=== PATIENT | female | born 1970 | race Caucasian/White ===

== ENCOUNTER 2017-07-15 15:47 | Emergency (ER) | payer OTHER ==
[~2017-07-15 15:47] MED LIST: ALLO100 PO; DOXA4 PO; GABA300 PO; LABE200 PO; LOSA50 PO; POTCHL20ER PO; PRED10 PO; Remeron45 MG PO; Roxicodone15 MG PO; Valium5 MG PO; Ventolin/Prove6.7 GM INH
== END 2017-07-15 16:03 | disposition left against medical advice (07) ==
LOC: ER 15:47
DX: Z53.21 Procedure and treatment not carried out due to patient leaving prior to being seen by health care provider (principal)

== ENCOUNTER 2018-05-06 19:49 | Inpatient (IN) | payer OTHER ==
[~2018-05-06] VITALS: Ht 157.5 cm; Wt 109.4 kg
[~2018-05-06 19:49] MED LIST changes: +ALBU90OI INH; +HYDSUL200 PO; +MIRT15ST PO; +Percocet 5-3251 EACH PO; -Remeron45 MG PO; -Ventolin/Prove6.7 GM INH
[2018-05-06 20:26] LABS: BASOPHILS ABSOLUTE AUTO 0.09 K/mm3 (0.00-0.23); BASOPHILS PERCENT AUTO 1 % (0-2); EOSINOPHILS ABSOLUTE AUTO 0.29 K/mm3 (0.00-0.68); EOSINOPHILS PERCENT AUTO 3 % (0-6); Hematocrit 40.6 % (33.0-51.0); Hemoglobin 13.3 g/dL (11.5-16.0); IMMATURE GRAN ABSOLUTE AUTO 0.19 K/mm3 (0.00-0.10); IMMATURE GRAN PERCENT AUTO 2 % (0-1); LYMPHOCYTES ABSOLUTE AUTO 1.22 K/mm3 (0.84-5.20); LYMPHOCYTES PERCENT AUTO 10 % (21-46); MONOCYTES ABSOLUTE AUTO 0.76 K/mm3 (0.16-1.47); MONOCYTES PERCENT AUTO 7 % (4-13); Mean Corpuscular HGB 31.6 pg (26.0-34.0); Mean Corpuscular HGB Conc 32.8 g/dL (31.5-36.5); Mean Corpuscular Volume 96 fL (80-100); Mean Platelet Volume 9.1 fL (9.1-12.4); NEUTROPHILS ABSOLUTE AUTO 9.16 K/mm3 (1.96-9.15); NEUTROPHILS PERCENT AUTO 78 % (41-73); NRBC ABSOLUTE 0.02 K/mm3 (0.00-0.02); NRBC Auto 0.2 /100 WBC (0.0-0.2); Platelet Count 207 K/mm3 (150-400); RDW Coefficient Variation 13.8 % (11.7-14.2); RDW Standard Deviation 48.2 fL (35.1-46.3); Red Blood Cell Count 4.21 M/mm3 (3.80-5.20); White Blood Cell Count 11.71 K/mm3 (4.00-11.30)
[2018-05-06 20:42] LABS: Alanine Aminotransfer (ALT/SGP 35 U/L (12-78); Albumin, Blood 3.4 g/dL (3.4-5.0); Albumin/Globulin Ratio 0.9 (0.8-1.8); Alk Phos 92 U/L (50-136); Anion Gap 9 mmol/L (6-16); Aspartate Aminotrans (AST/SGOT 31 U/L (12-37); Bilirubin, Total 0.4 mg/dL (0.1-1.0); Blood Urea Nitrogen 18 mg/dL (8-24); Bun/Creatinine Ratio 10.4 (12.0-20.0); CO2, Blood 24 mmol/L (21-32); Calcium, Blood 8.6 mg/dL (8.5-10.1); Chloride, Blood 104 mmol/L (98-108); Creatinine, Blood 1.73 mg/dL (0.40-1.00); Globulin, Blood 3.6 g/dL (2.2-4.0); Glomerular Filtration Rate 34 (60-); Glucose, Blood 103 mg/dL (70-99); Potassium, Blood 3.9 mmol/L (3.5-5.5); Sodium, Blood 137 mmol/L (136-145); Troponin I <0.015 ng/mL (0.000-0.040)
[2018-05-07 02:23] LABS: Hematocrit 41.9 % (33.0-51.0); Hemoglobin 13.6 g/dL (11.5-16.0); Mean Corpuscular HGB 31.2 pg (26.0-34.0); Mean Corpuscular HGB Conc 32.5 g/dL (31.5-36.5); Mean Corpuscular Volume 96 fL (80-100); Mean Platelet Volume 9.4 fL (9.1-12.4); Platelet Count 212 K/mm3 (150-400); RDW Coefficient Variation 13.8 % (11.7-14.2); RDW Standard Deviation 47.7 fL (35.1-46.3); Red Blood Cell Count 4.36 M/mm3 (3.80-5.20); White Blood Cell Count 9.48 K/mm3 (4.00-11.30)
[2018-05-07 02:39] LABS: Bun/Creatinine Ratio 11.3 (12.0-20.0); Calcium, Blood 8.4 mg/dL (8.5-10.1); Creatinine, Blood 1.77 mg/dL (0.40-1.00); Potassium, Blood 4.1 mmol/L (3.5-5.5)
[2018-05-07 06:25] LABS: Adenovirus Not Detected (NOT DETECT); Bordetella pertussis Not Detected (NOT DETECT); Chlamydophila pneumoniae Not Detected (NOT DETECT); Coronavirus 229E Not Detected (NOT DETECT); Coronavirus HKU1 Not Detected (NOT DETECT); Coronavirus NL63 Not Detected (NOT DETECT); Coronavirus OC43 Not Detected (NOT DETECT); Human Metapneumovirus Not Detected (NOT DETECT); Human Rhinovirus/Enterovirus Detected (NOT DETECT); Influenza A Not Detected (NOT DETECT); Influenza A/2009-H1 Not Detected (NOT DETECT); Influenza A/H1 Not Detected (NOT DETECT); Influenza A/H3 Not Detected (NOT DETECT); Influenza B Not Detected (NOT DETECT); Mycoplasma pneumoniae Not Detected (NOT DETECT); Parainfluenza Virus 1 Not Detected (NOT DETECT); Parainfluenza Virus 2 Not Detected (NOT DETECT); Parainfluenza Virus 3 Not Detected (NOT DETECT); Parainfluenza Virus 4 Not Detected (NOT DETECT); Respiratory Syncytial Virus Not Detected (NOT DETECT)
--- NOTE | 2018-05-07 06:29 | NUR ---
SHIFT SUMMARY PT ALERT AND ORIENTED. PT ANXIOUS AT TIMES. VS STABLE. ELEVATED BP AND PROVIDER AWARE. PT COMPLAINS OF PAIN IN HER CHEST THAT FEELS LIKE TIGHTNESS. DR POON CALLED AND TYLENOL PROVIDED. LS EXP WHEEZES. O2 SATS >92% ON 2L NC. PT STATES SHE DOES NOT USE O2 AT HOME. PT STATES SHE HAS HAD A PRODUCTIVE COUGH WITH YELLOW SPUTUM. PT ABLE TO AMBULATE TO BATHROOM TO VOID. NO OTHER CHANGES AT THIS TIME. WILL CONTINUE TO MONITOR AND REPORT TO ONCOMING RN. CALL LIGHT IN REACH.
--- NOTE | 2018-05-07 07:55 | NUR ---
INITIAL ASSESSMENT: PT RESTING IN BED. LS VERY WHEEZY ON EXPIRATION. PT SOB WITH EXERTION. STATES THAT SHE IS HAVING SHARP PAINS IN HER CHEST THAT COME AND GO AND ALSO THAT SHE IS HAVING A CONSTANT PRESSURE PAIN. RATES HER PAIN AN 8/10. WILL TREAT PER ORDERS. VSS. CALL LIGHT IN REACH.
--- NOTE | 2018-05-07 12:31 | NUR ---
Spiritual care visit conducted. Patient was sitting up in bed and alert when I entered the room. I introduced myself and stated the purpose for my visit and patient invited me to sit down. After establishing therapeutic alliance patient shared issues of struggle centered around the patient's salina and family. A lengthy conversation ensued in which I conducted a life review, explored parient's belief system, explored sources of meaning and dignity, reinforeced helpful attitudes and practices and provided prayer. Patient responded well to all interventions, showed signs of reduced stress and restored salina and expressed gratitude for the visit.
--- NOTE | 2018-05-07 16:53 | NUR ---
TRANSFER NOTE: Called report to medical floor RN. Pt to be transfered to room 360. VSS at time of transfer. Pt denies questions. Left via W/C with MECHANICAL SERVICE REPRESENTATIVE.
--- NOTE | 2018-05-07 18:37 | NUR ---
PATIENT TRANSFERRED THIS AFTERNOON TO MEDICAL. FAMILY AT BEDSIDE. PATIENT REQUESTED TYLENOL FOR PAIN DUE TO COUGHING. COUGH IS DRY AND NON PRODUCTIVE.
[2018-05-08 04:23] LABS: BASOPHILS ABSOLUTE AUTO 0.03 K/mm3 (0.00-0.23); BASOPHILS PERCENT AUTO 0 % (0-2); EOSINOPHILS ABSOLUTE AUTO 0.03 K/mm3 (0.00-0.68); EOSINOPHILS PERCENT AUTO 0 % (0-6); Hematocrit 38.7 % (33.0-51.0); Hemoglobin 12.5 g/dL (11.5-16.0); IMMATURE GRAN ABSOLUTE AUTO 0.25 K/mm3 (0.00-0.10); IMMATURE GRAN PERCENT AUTO 1 % (0-1); LYMPHOCYTES ABSOLUTE AUTO 0.94 K/mm3 (0.84-5.20); LYMPHOCYTES PERCENT AUTO 5 % (21-46); MONOCYTES ABSOLUTE AUTO 0.56 K/mm3 (0.16-1.47); MONOCYTES PERCENT AUTO 3 % (4-13); Mean Corpuscular HGB 30.9 pg (26.0-34.0); Mean Corpuscular HGB Conc 32.3 g/dL (31.5-36.5); Mean Corpuscular Volume 96 fL (80-100); Mean Platelet Volume 9.6 fL (9.1-12.4); NEUTROPHILS ABSOLUTE AUTO 17.05 K/mm3 (1.96-9.15); NEUTROPHILS PERCENT AUTO 90 % (41-73); Platelet Count 213 K/mm3 (150-400); RDW Coefficient Variation 13.8 % (11.7-14.2); RDW Standard Deviation 47.5 fL (35.1-46.3); Red Blood Cell Count 4.04 M/mm3 (3.80-5.20); White Blood Cell Count 18.86 K/mm3 (4.00-11.30)
[2018-05-08 04:39] LABS: Bun/Creatinine Ratio 16.5 (12.0-20.0); Calcium, Blood 8.1 mg/dL (8.5-10.1); Potassium, Blood 4.5 mmol/L (3.5-5.5)
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
[2018-05-08] MEDS ORDERED: DIAZ5 PO (13:27)
[2018-05-08 13:33] LABS: Albumin, Blood 3.3 g/dL (3.4-5.0); Anion Gap 9 mmol/L (6-16); Blood Urea Nitrogen 38 mg/dL (8-24); Bun/Creatinine Ratio 19.4 (12.0-20.0); CO2, Blood 27 mmol/L (21-32); Chloride, Blood 106 mmol/L (98-108); Creatinine, Blood 1.96 mg/dL (0.40-1.00); Glomerular Filtration Rate 29 (60-); Glucose, Blood 136 mg/dL (70-99); Phosphorus, Blood 2.6 mg/dL (2.5-4.9); Potassium, Blood 4.2 mmol/L (3.5-5.5); Sodium, Blood 142 mmol/L (136-145)
[2018-05-08] MEDS ORDERED: Acetaminophen325 M1 PO (13:33)
[2018-05-08] MEDS ORDERED: AZIT500 PO (13:35)
[2018-05-08] MEDS ORDERED: GUAIFENESIN ER600 MG PO (13:37)
[2018-05-08] MEDS ORDERED: ONDA4ODT MM (13:37)
--- NOTE | 2018-05-08 17:58 | NUR ---
PATIENT DISCHARGE THE PATIENT WAS DISCHARGED HOME WITH HER DAUGHTER AFTER DISCHARGE INSTRUCTIONS WERE GIVEN TO THE PATIENT. THE PATIENT WAS INSTRUCTED TO TAKE HER MEDICATIONS DIRECTED AND TO FOLLOW UP WITH HER PCP WITH IN ONE WEEK. THE PATIENT SEEMED HAPPY TO BE GOING HOME.
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
== END 2018-05-08 19:05 | disposition home or self-care (01) | DRG 196 ==
LOC: ER 19:49 → ERHOLD 22:41 → PCU 05-07 03:10 → MEDS 05-07 16:56 → ENPENDDIS 05-08 12:58 → MEDS 05-08 18:20
PROVIDERS: Emergency Medicine; Family Medicine; Nurse Practitioner Acute Care; ADMIT Hospitalist
DX: J84.10 Pulmonary fibrosis, unspecified (principal); J96.21 Acute and chronic respiratory failure with hypoxia; J44.1 Chronic obstructive pulmonary disease with (acute) exacerbation; C85.90 Non-Hodgkin lymphoma, unspecified, unspecified site; I13.0 Hypertensive heart and chronic kidney disease with heart failure and stage 1 through stage 4 chronic kidney disease, or unspecified chronic kidney disease; J44.0 Chronic obstructive pulmonary disease with (acute) lower respiratory infection; Z68.41 Body mass index [BMI] 40.0-44.9, adult; E66.01 Morbid (severe) obesity due to excess calories; N18.3 Chronic kidney disease, stage 3 (moderate); I50.9 Heart failure, unspecified; J20.6 Acute bronchitis due to rhinovirus; F41.9 Anxiety disorder, unspecified; Z87.891 Personal history of nicotine dependence; M06.9 Rheumatoid arthritis, unspecified; G47.33 Obstructive sleep apnea (adult) (pediatric)
CPT/HCPCS: 36415; 71046; 80048; 80053; 80069; 83690; 83880; 84484; 85025; 85027; 87486; 87581; 87633; 87798; 93005; 93010; 93306; 94640; 94760; 96374; 99285-25; J0360; J1650; J1940; J2930; J7030

== ENCOUNTER 2018-09-28 15:22 | Emergency (ER) | payer OTHER ==
[~2018-09-28] VITALS: Ht 157.5 cm; Wt 108.9 kg
[~2018-09-28 15:22] MED LIST changes: +AZIT500 PO; +Acetaminophen325 M1 PO; +DIAZ5 PO; +GUAIFENESIN ER600 MG PO; +ONDA4ODT MM
[2018-09-28 16:17] LABS: BASOPHILS ABSOLUTE AUTO 0.07 K/mm3 (0.00-0.23); BASOPHILS PERCENT AUTO 1 % (0-2); EOSINOPHILS ABSOLUTE AUTO 0.26 K/mm3 (0.00-0.68); EOSINOPHILS PERCENT AUTO 3 % (0-6); Hematocrit 42.5 % (33.0-51.0); IMMATURE GRAN ABSOLUTE AUTO 0.08 K/mm3 (0.00-0.10); IMMATURE GRAN PERCENT AUTO 1 % (0-1); LYMPHOCYTES ABSOLUTE AUTO 2.02 K/mm3 (0.84-5.20); LYMPHOCYTES PERCENT AUTO 25 % (21-46); MONOCYTES ABSOLUTE AUTO 0.84 K/mm3 (0.16-1.47); MONOCYTES PERCENT AUTO 10 % (4-13); Mean Corpuscular HGB 30.4 pg (26.0-34.0); Mean Corpuscular HGB Conc 32.9 g/dL (31.5-36.5); Mean Corpuscular Volume 92 fL (80-100); Mean Platelet Volume 9.7 fL (9.1-12.4); NEUTROPHILS ABSOLUTE AUTO 4.86 K/mm3 (1.96-9.15); NEUTROPHILS PERCENT AUTO 60 % (41-73); Platelet Count 224 K/mm3 (150-400); RDW Coefficient Variation 12.9 % (11.7-14.2); RDW Standard Deviation 43.3 fL (35.1-46.3); White Blood Cell Count 8.13 K/mm3 (4.00-11.30)
[2018-09-28 16:37] LABS: Alanine Aminotransfer (ALT/SGP 30 U/L (12-78); Albumin, Blood 3.6 g/dL (3.4-5.0); Albumin/Globulin Ratio 1.1 (0.8-1.8); Alk Phos 92 U/L (50-136); Anion Gap 7 mmol/L (6-16); Aspartate Aminotrans (AST/SGOT 44 U/L (12-37); Bilirubin, Total 0.6 mg/dL (0.1-1.0); Blood Urea Nitrogen 15 mg/dL (8-24); Bun/Creatinine Ratio 9.1 (12.0-20.0); CO2, Blood 26 mmol/L (21-32); Calcium, Blood 8.6 mg/dL (8.5-10.1); Chloride, Blood 105 mmol/L (98-108); Creatinine, Blood 1.65 mg/dL (0.40-1.00); Globulin, Blood 3.4 g/dL (2.2-4.0); Glomerular Filtration Rate 35 (60-); Glucose, Blood 82 mg/dL (70-99); Potassium, Blood 4.4 mmol/L (3.5-5.5); Sodium, Blood 138 mmol/L (136-145); Troponin I <0.015 ng/mL (0.000-0.040)
[2018-09-28] MEDS ORDERED: Valtrex1000 MG PO (17:18)
[2018-09-28] MEDS ORDERED: Prednisone20 MG PO (17:18)
== END 2018-09-28 17:29 | disposition home or self-care (01) ==
LOC: ER 15:22
PROVIDERS: Physician Assistant
DX: G51.0 Bell's palsy (principal); I13.0 Hypertensive heart and chronic kidney disease with heart failure and stage 1 through stage 4 chronic kidney disease, or unspecified chronic kidney disease; I50.9 Heart failure, unspecified; N18.9 Chronic kidney disease, unspecified; Z87.891 Personal history of nicotine dependence; Z79.899 Other long term (current) drug therapy; Z79.891 Long term (current) use of opiate analgesic
CPT/HCPCS: 36415; 70450; 80053; 84484; 85025; 93005; 93010; 99284-25; J7512

== ENCOUNTER 2020-03-06 16:51 | Inpatient (IN) | payer OTHER ==
[~2020-03-06] VITALS: Ht 157.5 cm; Wt 104.3 kg
[~2020-03-06 16:51] MED LIST changes: +Prednisone20 MG PO; +Valtrex1000 MG PO
[2020-03-06 18:14] LABS: BASOPHILS ABSOLUTE AUTO 0.06 K/mm3 (0.00-0.23); BASOPHILS PERCENT AUTO 1 % (0-2); EOSINOPHILS ABSOLUTE AUTO 0.37 K/mm3 (0.00-0.68); EOSINOPHILS PERCENT AUTO 4 % (0-6); Hematocrit 47.5 % (33.0-51.0); Hemoglobin 15.1 g/dL (11.5-16.0); IMMATURE GRAN ABSOLUTE AUTO 0.04 K/mm3 (0.00-0.10); IMMATURE GRAN PERCENT AUTO 1 % (0-1); LYMPHOCYTES ABSOLUTE AUTO 1.34 K/mm3 (0.84-5.20); LYMPHOCYTES PERCENT AUTO 16 % (21-46); MONOCYTES ABSOLUTE AUTO 0.71 K/mm3 (0.16-1.47); MONOCYTES PERCENT AUTO 8 % (4-13); Mean Corpuscular HGB 28.3 pg (26.0-34.0); Mean Corpuscular HGB Conc 31.8 g/dL (31.5-36.5); Mean Corpuscular Volume 89 fL (80-100); Mean Platelet Volume 9.9 fL (9.1-12.4); NEUTROPHILS PERCENT AUTO 70 % (41-73); Platelet Count 248 K/mm3 (150-400); RDW Coefficient Variation 12.7 % (11.7-14.2); RDW Standard Deviation 41.5 fL (35.1-46.3); Red Blood Cell Count 5.34 M/mm3 (3.80-5.20); White Blood Cell Count 8.42 K/mm3 (4.00-11.30)
[2020-03-06 18:30] LABS: Albumin, Blood 3.5 g/dL (3.4-5.0); Albumin/Globulin Ratio 0.9 (0.8-1.8); Bilirubin, Total 0.4 mg/dL (0.1-1.0); Bun/Creatinine Ratio 12.3 (12.0-20.0); Calcium, Blood 8.9 mg/dL (8.5-10.1); Creatinine, Blood 2.04 mg/dL (0.40-1.00); Globulin, Blood 3.7 g/dL (2.2-4.0); Potassium, Blood 4.1 mmol/L (3.5-5.5); Total Protein, Blood 7.2 g/dL (6.4-8.2)
[2020-03-06 18:48] LABS: Source, Urine Clean Catch
[2020-03-06 18:57] LABS: Appearance, Urine Clear (Clear); Bilirubin, Urine Neg (Neg); Blood, Urine 1+ (Neg); Color, Urine Yellow (P-Yellow); Glucose Qualitative, Urine Neg (Neg); Ketones, Urine Neg (Neg); Leukocyte Esterase, Urine Neg (Neg); Nitrite, Urine Neg (Neg); Protein, Urine 2+ (Neg); Specific Gravity, Urine 1.015 (1.003-1.022); Urobilinogen, Urine NORM (Normal)
[2020-03-06 19:07] LABS: Bacteria Rare /hpf; Squamous Epithelial Cells Few /hpf (Few); White Blood Cells, Urine 0-2 /hpf (0-5)
[2020-03-06] MEDS ORDERED: LASIX20 MG PO (23:29)
[2020-03-07 00:14] LABS: Influenza A, PCR Negative (NEGATIVE); Influenza B, PCR Negative (NEGATIVE); Resp Syncytial Virus, PCR Negative (NEGATIVE); SARS-Cov-2 (COVID-19) PCR, MMC Negative (NEGATIVE)
--- NOTE | 2020-03-07 06:21 | NUR ---
SHIFT SUMMARY NEW ADMIT THIS SHIFT. AAOX4. NPO. DISCOMFORT CONTROLLED WITH DILAUDID BATTERY HAND. DR MOONEY IN TO SEE PT EARLY THIS AM, OKAY WITH SMALL SNACK. PT WITH NAUSEA + EMESIS POST SNACK, DECRESED WITH ZOFRAN. PT UP SBA TO RESTROOM, LETHARGIC R/T LACK OF SLEEP. IVF + DILAUDID BATTERY HAND. PT RESTING THIS AM. ORIENTED TO CALL LIGHT + DEMONSTRATED USE.
--- NOTE | 2020-03-07 08:03 | NUR ---
C/O NAUSEA THIS AM, MEDICATED W/ ZOFRAN, REPORTS FEELING SLIGHTLY ANXIOUS THIS AM AND CONT. TO HAVE ABD PAIN, PT ON GOLF CART REPAIRER, STATES CAREGIVER WILL BRING IN CURRENT MED LIST, DENIES ANY OTHER DISCOMFORT AT THIST TIME.
[2020-03-07] MEDS ORDERED: MIRT30 PO (08:45)
[2020-03-07] MEDS ORDERED: VENL150ER PO (08:45)
--- NOTE | 2020-03-07 13:15 | NUR ---
PT'S GLASSES LEFT IN HER ROOM ON TABLE. BRACELET GIVEN TO FRIEND JATINDER AND EARRINGS PLACED IN SMALL BAG WITH PT'S NAME AND TAKEN TO OR.
--- NOTE | 2020-03-07 13:15 | NUR ---
PT TRANSFERED TO [facility] VIA [facility]URNY FROM FLOOR. Lungs clear T/O to Auscultation. History, Chart, Medications and Allergies reviewed before start of procedure. Patient confirms NPO status and agrees with scheduled surgery. Pre-Op teaching done. Pt verbalizes understanding.
--- NOTE | 2020-03-07 13:33 | NUR ---
03/07/20 Pete3 Cindy Pena NO PREOP ANTIBIOTICS ORDERED
[2020-03-07] MEDS ORDERED: OMEP20ER PO (15:52)
[2020-03-07] MEDS ORDERED: HYDHCL25 PO (16:18)
[2020-03-07] MEDS ORDERED: Isosorbide Mono30 MG PO (16:19)
[2020-03-07] MEDS ORDERED: AMLO10 PO (16:20)
[2020-03-07] MEDS ORDERED: Aspir 8181 MG PO (16:20)
--- NOTE | 2020-03-07 16:26 | NUR ---
POST OP ARRIVED FROM PACU VIA JAYLEENRKACIE, DROWSY BUT PT WAS ABLE TO SCOOT SELF OVER TO BED, PT IS MOANING AND GRUNTING AND UNABLE TO SPEAK BUT FOLLOWS COMMANDS, POINTING TO MOUTH AND MOUTHING "DRY" O2 SATS 81-85% ON 2L PT PLACED ON 4 L VIA NC, SATS IMPROVED TO 92%, ENCOURAGED TO COUGH AND DEEP BREATHE, DENIES ANY NAUSEA, CONT. TO MONITOR FOR ANY CHANGES.
[2020-03-07 17:16] LABS: Albumin, Blood 3.4 g/dL (3.4-5.0); Bilirubin, Total 0.5 mg/dL (0.1-1.0); Bun/Creatinine Ratio 10.4 (12.0-20.0); Calcium, Blood 8.7 mg/dL (8.5-10.1); Creatinine, Blood 2.01 mg/dL (0.40-1.00); Globulin, Blood 3.3 g/dL (2.2-4.0); Potassium, Blood 4.4 mmol/L (3.5-5.5); Total Protein, Blood 6.7 g/dL (6.4-8.2)
[2020-03-07 17:24] LABS: BASOPHILS ABSOLUTE AUTO 0.04 K/mm3 (0.00-0.23); BASOPHILS PERCENT AUTO 0 % (0-2); EOSINOPHILS ABSOLUTE AUTO 0.08 K/mm3 (0.00-0.68); EOSINOPHILS PERCENT AUTO 1 % (0-6); Hemoglobin 14.1 g/dL (11.5-16.0); IMMATURE GRAN ABSOLUTE AUTO 0.05 K/mm3 (0.00-0.10); IMMATURE GRAN PERCENT AUTO 0 % (0-1); LYMPHOCYTES ABSOLUTE AUTO 1.12 K/mm3 (0.84-5.20); LYMPHOCYTES PERCENT AUTO 8 % (21-46); MONOCYTES ABSOLUTE AUTO 0.47 K/mm3 (0.16-1.47); MONOCYTES PERCENT AUTO 3 % (4-13); Mean Corpuscular HGB 28.4 pg (26.0-34.0); Mean Corpuscular HGB Conc 31.3 g/dL (31.5-36.5); Mean Corpuscular Volume 91 fL (80-100); Mean Platelet Volume 9.8 fL (9.1-12.4); NEUTROPHILS ABSOLUTE AUTO 12.66 K/mm3 (1.96-9.15); NEUTROPHILS PERCENT AUTO 88 % (41-73); Platelet Count 194 K/mm3 (150-400); RDW Coefficient Variation 12.6 % (11.7-14.2); RDW Standard Deviation 41.5 fL (35.1-46.3); Red Blood Cell Count 4.96 M/mm3 (3.80-5.20); White Blood Cell Count 14.42 K/mm3 (4.00-11.30)
--- NOTE | 2020-03-07 21:46 | NUR ---
PT REPORTED MUSCLE SPASMS. APPEARS TO HAVE OCC TWITCHING AT SHOULDERS AND ARMS. PT VERB HAS NO HX OF THIS. I CALLED DR DUNN AND REPORTED ABOVE. DR MOONEY STATED SHE NOTED THIS WITH PT PREOP AND GAVE NO NEW ORDERS.
--- NOTE | 2020-03-08 01:16 | NUR ---
PT DROWSY CONTINUES MILDLY SLOW TO RESPOND WITH ANSWERS TO QUESTIONS.HOWEVER, PT IS ORIENTED TO SITUATION ,TIME AND STAFF.STOPPED CONTINUOS MODE ON DIRECTOR REVENUE AT THIS TIME PER JUDGEMENT OF THIS RN AND FLACO SCALE TESTER CRUISE COORDINATOR.
[2020-03-08 05:58] LABS: BASOPHILS ABSOLUTE AUTO 0.03 K/mm3 (0.00-0.23); BASOPHILS PERCENT AUTO 0 % (0-2); EOSINOPHILS ABSOLUTE AUTO 0.02 K/mm3 (0.00-0.68); EOSINOPHILS PERCENT AUTO 0 % (0-6); Hematocrit 41.2 % (33.0-51.0); Hemoglobin 12.9 g/dL (11.5-16.0); IMMATURE GRAN ABSOLUTE AUTO 0.03 K/mm3 (0.00-0.10); IMMATURE GRAN PERCENT AUTO 0 % (0-1); LYMPHOCYTES ABSOLUTE AUTO 1.74 K/mm3 (0.84-5.20); LYMPHOCYTES PERCENT AUTO 16 % (21-46); MONOCYTES PERCENT AUTO 12 % (4-13); Mean Corpuscular HGB 28.3 pg (26.0-34.0); Mean Corpuscular HGB Conc 31.3 g/dL (31.5-36.5); Mean Corpuscular Volume 90 fL (80-100); Mean Platelet Volume 9.5 fL (9.1-12.4); NEUTROPHILS ABSOLUTE AUTO 7.61 K/mm3 (1.96-9.15); NEUTROPHILS PERCENT AUTO 71 % (41-73); Platelet Count 182 K/mm3 (150-400); RDW Coefficient Variation 12.4 % (11.7-14.2); RDW Standard Deviation 40.7 fL (35.1-46.3); Red Blood Cell Count 4.56 M/mm3 (3.80-5.20); White Blood Cell Count 10.73 K/mm3 (4.00-11.30)
--- NOTE | 2020-03-08 06:23 | NUR ---
SUMMARY PT STATES FEELS BETTER. PT DOES NOT INTERACT MUCH WITH STAFF VERBALLY AND APPEARS SOMEWHAT CHILDLIKE AT TIMES. CONFIRMED THIS IS BASELINE FOR PT. ALSO PT WITH SLIGHTLY BAH APPEARANCE TO R EYE THAN L WHICH PT REPORTS SAME SINCE HER BELS PALSY AND DR AWARE.I HAVE BEEN UNABLE TO WEAN PT FROM O2 HER R/A BIOX HAS BEEN 87%.PT WITH HX PULMONARY FIBROSIS AND ALSO HX COPD NOTED IN OLD RECORDS. PT DENIES O2 USE AT HOME. DR MOONEY ORDERED HOPSPITALIST CX THIS AM.
[2020-03-08 09:29] LABS: Albumin, Blood 3.1 g/dL (3.4-5.0); Albumin/Globulin Ratio 1.1 (0.8-1.8); Bilirubin, Total 0.5 mg/dL (0.1-1.0); Bun/Creatinine Ratio 11.4 (12.0-20.0); Calcium, Blood 8.5 mg/dL (8.5-10.1); Creatinine, Blood 1.75 mg/dL (0.40-1.00); Globulin, Blood 2.9 g/dL (2.2-4.0); Potassium, Blood 4.5 mmol/L (3.5-5.5)
--- NOTE | 2020-03-08 18:43 | NUR ---
SHIFT SUMMARY PT IS POD#1 FROM MASS REMOVAL. PAIN HAS BEEN MANAGED WITH 1 NORCO Q6. PT RATES HER PAIN AT 10/10 EVEN AFTER HAVING PAIN MEDICATION. PT FALLS ASLEEP EASILY BETWEEN CARE. SHE APPEARS COMFORTABLE AT REST AND IS ABLE TO TRANSFER DESPITE SOME INCREASE IN PAIN WITH MOVEMENT. PT IS TOLERATING PO AND VOIDING. VSS. WILL MONITOR UNTIL REPORT TO ONCOMING RN.
--- NOTE | 2020-03-09 04:35 | NUR ---
SHIFT SUMMARY POD #2 S/P BILATERAL SALPINGECTOMY/OOPHORECTOMY. TRANSVERSE ABD DRESSING CDI. PAIN MANAGED WITH 2 PERCOCET. SPO2 ABOVE 92% ON 2L NC, CONT BIOX IN PLACE. UP TO BATHROOM W/SBA. IS VOIDING AND REPORTS PASSING FLATUS. JEFF PO INTAKE. APPEARS TO HAVE SLEPT T/O MOST OF SHIFT. AWAITING MORNING LABS. PT CURRENTLY RESTING IN BED WITH CALL LIGHT IN REACH. WILL CONT TO MONITOR AND GIVE REPORT TO ONCOMING RN.
[2020-03-09 05:00] LABS: Bun/Creatinine Ratio 14.1 (12.0-20.0); Calcium, Blood 8.4 mg/dL (8.5-10.1); Creatinine, Blood 1.91 mg/dL (0.40-1.00); Potassium, Blood 3.8 mmol/L (3.5-5.5)
[2020-03-09 09:28] LABS: BASOPHILS ABSOLUTE AUTO 0.07 K/mm3 (0.00-0.23); BASOPHILS PERCENT AUTO 1 % (0-2); EOSINOPHILS ABSOLUTE AUTO 0.38 K/mm3 (0.00-0.68); EOSINOPHILS PERCENT AUTO 4 % (0-6); Hematocrit 39.6 % (33.0-51.0); Hemoglobin 12.3 g/dL (11.5-16.0); IMMATURE GRAN ABSOLUTE AUTO 0.03 K/mm3 (0.00-0.10); IMMATURE GRAN PERCENT AUTO 0 % (0-1); LYMPHOCYTES ABSOLUTE AUTO 2.25 K/mm3 (0.84-5.20); LYMPHOCYTES PERCENT AUTO 24 % (21-46); MONOCYTES PERCENT AUTO 12 % (4-13); Mean Corpuscular HGB 28.7 pg (26.0-34.0); Mean Corpuscular HGB Conc 31.1 g/dL (31.5-36.5); Mean Corpuscular Volume 93 fL (80-100); Mean Platelet Volume 10.2 fL (9.1-12.4); NEUTROPHILS ABSOLUTE AUTO 5.66 K/mm3 (1.96-9.15); NEUTROPHILS PERCENT AUTO 60 % (41-73); Platelet Count 185 K/mm3 (150-400); RDW Coefficient Variation 12.6 % (11.7-14.2); RDW Standard Deviation 43.2 fL (35.1-46.3); Red Blood Cell Count 4.28 M/mm3 (3.80-5.20); White Blood Cell Count 9.49 K/mm3 (4.00-11.30)
--- NOTE | 2020-03-09 10:23 | NUR ---
dr lira by to see pt 1 tab po percocet given will trial giving 1 tab every 3 hrs for pain control per dr lira
--- NOTE | 2020-03-09 11:17 | NUR ---
istrate by to see pt ct scan ordered and iv levaquin
[2020-03-09 18:12] LABS: Influenza A, PCR Negative (NEGATIVE); Influenza B, PCR Negative (NEGATIVE); Resp Syncytial Virus, PCR Negative (NEGATIVE); SARS-Cov-2 (COVID-19) PCR, MMC Negative (NEGATIVE)
--- NOTE | 2020-03-09 18:18 | NUR ---
pt req assist to get back into bed after dinner covid rsv and flu a and b are neg
--- NOTE | 2020-03-09 18:50 | NUR ---
pt given some hot tea to try and cough up some mucus stated she is having difficulty bringing it up also encouraged her to use the is/tcdb also elev the hob to 90 degrees
[2020-03-10 04:12] LABS: BASOPHILS ABSOLUTE AUTO 0.07 K/mm3 (0.00-0.23); BASOPHILS PERCENT AUTO 1 % (0-2); EOSINOPHILS ABSOLUTE AUTO 0.41 K/mm3 (0.00-0.68); EOSINOPHILS PERCENT AUTO 5 % (0-6); Hematocrit 40.1 % (33.0-51.0); Hemoglobin 12.5 g/dL (11.5-16.0); IMMATURE GRAN ABSOLUTE AUTO 0.03 K/mm3 (0.00-0.10); IMMATURE GRAN PERCENT AUTO 0 % (0-1); LYMPHOCYTES ABSOLUTE AUTO 1.84 K/mm3 (0.84-5.20); LYMPHOCYTES PERCENT AUTO 24 % (21-46); MONOCYTES ABSOLUTE AUTO 1.06 K/mm3 (0.16-1.47); MONOCYTES PERCENT AUTO 14 % (4-13); Mean Corpuscular HGB 28.4 pg (26.0-34.0); Mean Corpuscular HGB Conc 31.2 g/dL (31.5-36.5); Mean Corpuscular Volume 91 fL (80-100); Mean Platelet Volume 9.8 fL (9.1-12.4); NEUTROPHILS ABSOLUTE AUTO 4.43 K/mm3 (1.96-9.15); NEUTROPHILS PERCENT AUTO 57 % (41-73); Platelet Count 197 K/mm3 (150-400); RDW Coefficient Variation 12.4 % (11.7-14.2); RDW Standard Deviation 41.8 fL (35.1-46.3); White Blood Cell Count 7.84 K/mm3 (4.00-11.30)
[2020-03-10 04:31] LABS: Albumin, Blood 2.8 g/dL (3.4-5.0); Albumin/Globulin Ratio 0.9 (0.8-1.8); Bilirubin, Total 0.5 mg/dL (0.1-1.0); Bun/Creatinine Ratio 15.3 (12.0-20.0); Calcium, Blood 8.3 mg/dL (8.5-10.1); Creatinine, Blood 1.96 mg/dL (0.40-1.00); Globulin, Blood 3.2 g/dL (2.2-4.0); Potassium, Blood 4.1 mmol/L (3.5-5.5)
--- NOTE | 2020-03-10 06:25 | NUR ---
SHIFT SUMMARY PT A/O X4. SBA UP TO BSC WITH FWW. PT TOLERATING PO INTAKE AND VOIDING. PAIN MANAGED WITH PO PAIN MEDICATION. DRESSING TO ABD CDI. USING 2L O2 NC TO MAINTAIN SAT ABOVE 92%. PT RESTING AT THIS TIME WITH CALL LIGHT IN REACH.
--- NOTE | 2020-03-10 08:07 | NUR ---
PT APPEARS TO BE RESTING COMFORTABLY WHEN THIS RN ENTERS ROOM, RATES PAIN 8/10, MEDICATED WITH 1 PERCOCET PER EMAR. OXYGEN TITRATED DOWN TO 1L S2PC-Q9 SAT 92%. PT UP TO CHAIR FOR BREAKFAST, WILL CONTINUE TO EDUCATE/ENCOURAGE USE OF FLUTTER AND AMBULATION.
--- NOTE | 2020-03-10 11:32 | NUR ---
DE-SAT PT UP WITH ASSISTANCE AMBULATED TO BATHROOM. PT HAD BEEN TITRATED TO RA W/SAT'S MAINTAINING 91-93% WITH AMBULATION TO/FROM BATHROOM PT O2 SAT DROPPED TO 78% ON RA, PT RECOVERED QUICKLY ONCE BACK TO CHAIR TO [address] GONZALEZTRATE NOTIFIED. WILL WORK WITH PT ON DEEP BREATHING/AMBULATING TODAY AND IF NO IMPROVEMENT WITH OXYGEN SAT'S W/AMBULATION TOMORROW WILL ORDER HOME O2 EVAL.
[2020-03-11 04:13] LABS: BASOPHILS ABSOLUTE AUTO 0.06 K/mm3 (0.00-0.23); BASOPHILS PERCENT AUTO 1 % (0-2); EOSINOPHILS PERCENT AUTO 6 % (0-6); Hematocrit 38.9 % (33.0-51.0); Hemoglobin 12.4 g/dL (11.5-16.0); IMMATURE GRAN ABSOLUTE AUTO 0.02 K/mm3 (0.00-0.10); IMMATURE GRAN PERCENT AUTO 0 % (0-1); LYMPHOCYTES PERCENT AUTO 26 % (21-46); MONOCYTES ABSOLUTE AUTO 0.86 K/mm3 (0.16-1.47); MONOCYTES PERCENT AUTO 13 % (4-13); Mean Corpuscular HGB 28.8 pg (26.0-34.0); Mean Corpuscular HGB Conc 31.9 g/dL (31.5-36.5); Mean Corpuscular Volume 90 fL (80-100); Mean Platelet Volume 9.8 fL (9.1-12.4); NEUTROPHILS ABSOLUTE AUTO 3.55 K/mm3 (1.96-9.15); NEUTROPHILS PERCENT AUTO 54 % (41-73); Platelet Count 198 K/mm3 (150-400); RDW Coefficient Variation 12.4 % (11.7-14.2); RDW Standard Deviation 41.2 fL (35.1-46.3); Red Blood Cell Count 4.31 M/mm3 (3.80-5.20); White Blood Cell Count 6.59 K/mm3 (4.00-11.30)
[2020-03-11 04:32] LABS: Albumin, Blood 2.8 g/dL (3.4-5.0); Albumin/Globulin Ratio 0.9 (0.8-1.8); Bilirubin, Total 0.5 mg/dL (0.1-1.0); Bun/Creatinine Ratio 16.4 (12.0-20.0); Calcium, Blood 8.4 mg/dL (8.5-10.1); Creatinine, Blood 1.77 mg/dL (0.40-1.00); Globulin, Blood 3.1 g/dL (2.2-4.0); Potassium, Blood 3.8 mmol/L (3.5-5.5); Total Protein, Blood 5.9 g/dL (6.4-8.2)
--- NOTE | 2020-03-11 05:16 | NUR ---
SHIFT SUMMARY: HIEU IS A&OX4. VSS, NO ACUTE EVENTS OVERNIGHT. SHE IS MAINTAINING SATS BETWEEN 89 AND 92% ON 1.5 LPM VIA NC, CONTINUOUS BIOX IN PLACE. SNORING RESPIRATIONS NOTED. SHE IS A ONE PERSON ASSIST TO THE BATHROOM, TOLERATING PO INTAKE WELL. SHE USES HER CALL LIGHT APPROPRIATELY. DRESSING TO TRANSVERSE INCISION WITH SCANT DRAINAGE, DRY AND INTACT. SHE HAS TAKEN ONE TABLET OF PERCOCET Q 3 FOR PAIN. SHE IS LYING IN BED WITH HER CALL LIGHT IN REACH. WILL REPORT TO DAY SHIFT RN.
[2020-03-11] MEDS ORDERED: ALBU90OI INH (13:11)
[2020-03-11] MEDS ORDERED: ACET325 PO (13:11)
[2020-03-11] MEDS ORDERED: CEPACOL MT (13:14)
[2020-03-11] MEDS ORDERED: SENNA LAXATIVE8.6 MG PO (13:15)
[2020-03-11] MEDS ORDERED: LEVO750 PO (13:15)
[2020-03-11] MEDS ORDERED: ONDA4ODT SL (13:17)
[2020-03-11] MEDS ORDERED: Percocet 5-3251 EACH PO (13:18)
[2020-03-11] MEDS ORDERED: VISBIOME PROBIOTIC PO (13:18)
--- NOTE | 2020-03-11 14:34 | NUR ---
DISCHARGE PT DISCHARGED HOME FROM UNIT AT APROX 1345. PT GIVEN WRITTEN AND VERBAL DISCHARGE INSTRUCTION AND VERBALIZED UNDERSTANDING. NEW RX'S FAXED TO [facility] IN [place]. IV REMOVED. HOME O2 DELIVERED TO HOSPITAL AND HOME. WHEELCHAIR TO CAR.
== END 2020-03-11 14:07 | disposition home or self-care (01) | DRG 742 ==
LOC: ER 16:51 → SURS 16:52 → ER 16:52 → SURS 23:16
PROVIDERS: Emergency Medicine; Family Medicine; Nurse Practitioner Acute Care; Physician Assistant; ADMIT Obstetrics & Gynecology
PROC: 0UT70ZZ Resection of Bilateral Fallopian Tubes, Open Approach (ICD-10-PCS; principal; 2020-03-07 12:00)
PROC: 0UT20ZZ Resection of Bilateral Ovaries, Open Approach (ICD-10-PCS; 2020-03-07 12:00)
DX: N83.512 Torsion of left ovary and ovarian pedicle (principal); J96.01 Acute respiratory failure with hypoxia; I50.33 Acute on chronic diastolic (congestive) heart failure; J12.9 Viral pneumonia, unspecified; I13.0 Hypertensive heart and chronic kidney disease with heart failure and stage 1 through stage 4 chronic kidney disease, or unspecified chronic kidney disease; Z68.41 Body mass index [BMI] 40.0-44.9, adult; J44.0 Chronic obstructive pulmonary disease with (acute) lower respiratory infection; Z20.828 Contact with and (suspected) exposure to other viral communicable diseases; F41.8 Other specified anxiety disorders; N18.30 Chronic kidney disease, stage 3 unspecified; M32.9 Systemic lupus erythematosus, unspecified; E66.01 Morbid (severe) obesity due to excess calories; G47.33 Obstructive sleep apnea (adult) (pediatric); J84.10 Pulmonary fibrosis, unspecified; M06.9 Rheumatoid arthritis, unspecified; K21.9 Gastro-esophageal reflux disease without esophagitis; Z85.72 Personal history of non-Hodgkin lymphomas; Z87.891 Personal history of nicotine dependence
CPT/HCPCS: 0241U; 36415; 71045; 71046; 71250; 74176; 76830; 76856; 80048; 80053; 81001; 81025; 83690; 83880; 84145; 85025; 86304; 88108; 88305; 93306; 94667; 94760; 94761; 94762; 96374; 96376; 97161; 97165; 97530; 97535; 99285-25; A9270; A9270-GY; J1100; J1170; J1940; J1956; J2060; J2250; J2310; J2405; J2704; J2710; J3010; J7030; J7120

== ENCOUNTER 2020-05-25 10:28 | Observation (INO) | payer OTHER ==
[~2020-05-25] VITALS: Ht 157.5 cm; Wt 103.6 kg
[~2020-05-25 10:28] MED LIST changes: +ACET325 PO; +AMLO10 PO; +Aspir 8181 MG PO; +CEPACOL MT; +HYDHCL25 PO; +Isosorbide Mono30 MG PO; +LASIX20 MG PO; +LEVO750 PO; +MIRT30 PO; +OMEP20ER PO; +ONDA4ODT SL; +SENNA LAXATIVE8.6 MG PO; +VENL150ER PO; +VISBIOME PROBIOTIC PO
--- NOTE | 2020-05-25 11:15 | NUR ---
05/25/20 1115 LENA PLUMMER PT PRESENTS TO PRE OP AND IS VERY SHORT OF BREATH WITH MINIMAL EXERTION. PT PLACED ON 2-3 L OF O2 VIA NC TO MAINTAIN O2 SATS >90%. PT IS HYPOTENSIVE, (88/53, 89/52). REPORTS FEELING POORLY, HX OF LYMPHOMA, AND DIALYSIS (LAST IN 2016). DR. MCMULLEN CONSULTED AND 250ML NS BOLUS, BREATHING TREATMENT ORDERED.
--- NOTE | 2020-05-25 13:18 | NUR ---
05/25/20 1318 Raven Friedman 1300 RECIEVED REPORT FROM RDS. PT EXPRESSES READINESS TO GO HOME. SCANT RED BLOOD VISIBLE ON NASAL DRESSING. CLEAN GAUZE APPLIED PRIOR TO DC SECURED WITH MUSTACHE DRESSING.
--- NOTE | 2020-05-25 13:22 | NUR ---
05/25/20 1322 [place]rine ARRIVED FROM OR ON 15LNRB MASK O2 SAT 95% ATTEMPTING TO WEAN 02. PT AWAKE AND FOLLOWING COMMANDS. DECREASED O2 TO 10L NRB AND THEN TO 3LNC. O2 SAT REMAINING OVER 92%
[2020-05-25 15:50] LABS: BASOPHILS ABSOLUTE AUTO 0.05 K/mm3 (0.00-0.23); BASOPHILS PERCENT AUTO 1 % (0-2); EOSINOPHILS ABSOLUTE AUTO 0.06 K/mm3 (0.00-0.68); EOSINOPHILS PERCENT AUTO 1 % (0-6); Hematocrit 40.2 % (33.0-51.0); Hemoglobin 12.5 g/dL (11.5-16.0); IMMATURE GRAN ABSOLUTE AUTO 0.06 K/mm3 (0.00-0.10); IMMATURE GRAN PERCENT AUTO 1 % (0-1); LYMPHOCYTES ABSOLUTE AUTO 0.93 K/mm3 (0.84-5.20); LYMPHOCYTES PERCENT AUTO 10 % (21-46); MONOCYTES ABSOLUTE AUTO 0.18 K/mm3 (0.16-1.47); MONOCYTES PERCENT AUTO 2 % (4-13); Mean Corpuscular HGB 28.3 pg (26.0-34.0); Mean Corpuscular HGB Conc 31.1 g/dL (31.5-36.5); Mean Corpuscular Volume 91 fL (80-100); Mean Platelet Volume 9.9 fL (9.1-12.4); NEUTROPHILS ABSOLUTE AUTO 7.96 K/mm3 (1.96-9.15); NEUTROPHILS PERCENT AUTO 86 % (41-73); NRBC ABSOLUTE 0.02 K/mm3 (0.00-0.02); NRBC Auto 0.2 /100 WBC (0.0-0.2); Platelet Count 191 K/mm3 (150-400); RDW Coefficient Variation 14.5 % (11.7-14.2); RDW Standard Deviation 47.5 fL (35.1-46.3); Red Blood Cell Count 4.41 M/mm3 (3.80-5.20); White Blood Cell Count 9.24 K/mm3 (4.00-11.30)
[2020-05-25 16:08] LABS: Bun/Creatinine Ratio 10.7 (12.0-20.0); Calcium, Blood 8.2 mg/dL (8.5-10.1); Creatinine, Blood 2.71 mg/dL (0.40-1.00); Potassium, Blood 5.3 mmol/L (3.5-5.5)
--- NOTE | 2020-05-25 17:56 | NUR ---
SHIFT SUMMARY PT ADMITTED THIS AFTERNOON FROM [facility]ERY [facility]ENTER DUE TO HYPOXIA. PT ARRIVED ON 8L NR OF O2. PT WAS SWITCHED TO NC 6L AND HAS BEEN TITRATED DOWN TO 4L. PT C/O PAIN TO LEFT SHOULDER AND GENERALIZED CHRONIC PAIN. LEFT SHOULDER DRESSING C/D/I FROM SURGICAL BIOPSY SITE. VITALS HAVE BEEN STABLE. MONITOR SHOWS PT TO BE IN SINUS RHYTHM.
--- NOTE | 2020-05-25 19:50 | NUR ---
ASSESSMENT: PT A&O X4. STATES PAIN 9/10 IN NECK AND BACK; STATES SHE'S HAD PAIN IN HER NECK AND CHEST FOR A COUPLE OF DAYS. STATES THE PAIN DOES NOT WORSEN WITH DEEP BREATHS. LS CLEAR T/O WITH BIOX 90% ON 4 L N/C. NECK IS SUPPLE AND SOFT. L NECK IS VERY TENDER TO PALPATION AT SITE AND A RADIUS OF APPROXIMATELY A VOLLEYBALL. SITE IS SWOLLEN. ICE PACK APPLIED. PT ABLE TO SWALLOW WITHOUT DIFFICULTY AND ABLE TO TURN HEAD. DRESSING CLEAN, DRY AND INTACT. BRUISES IN DIFFERENT STAGES ON BODY. 18G IV RAC S/L. FISTUAL RICHARD WITH THRILL FELT. ABD R/S WITH BTX4. UP WITH ASSIST TO TOILET.
--- NOTE | 2020-05-25 23:03 | NUR ---
RESTING: PT RESTING COMFORTABLY AND SNORING. VSS. WILL CONTINUE TO MONITOR.
[2020-05-26 03:36] LABS: BASOPHILS ABSOLUTE AUTO 0.01 K/mm3 (0.00-0.23); BASOPHILS PERCENT AUTO 0 % (0-2); EOSINOPHILS ABSOLUTE AUTO 0.01 K/mm3 (0.00-0.68); EOSINOPHILS PERCENT AUTO 0 % (0-6); Hemoglobin 12.4 g/dL (11.5-16.0); IMMATURE GRAN ABSOLUTE AUTO 0.05 K/mm3 (0.00-0.10); IMMATURE GRAN PERCENT AUTO 1 % (0-1); LYMPHOCYTES PERCENT AUTO 15 % (21-46); MONOCYTES ABSOLUTE AUTO 0.47 K/mm3 (0.16-1.47); MONOCYTES PERCENT AUTO 6 % (4-13); Mean Corpuscular HGB 27.9 pg (26.0-34.0); Mean Corpuscular Volume 90 fL (80-100); NEUTROPHILS ABSOLUTE AUTO 6.06 K/mm3 (1.96-9.15); NEUTROPHILS PERCENT AUTO 78 % (41-73); Platelet Count 200 K/mm3 (150-400); RDW Coefficient Variation 14.2 % (11.7-14.2); Red Blood Cell Count 4.45 M/mm3 (3.80-5.20)
--- NOTE | 2020-05-26 03:45 | NUR ---
REDNESS NOTED AROUND L NECK SITE. AREA MARKED. ASSISTED WITH AMBULATION TO TOILET; PT WEAK AND A BIT UNSTEADY. NEEDED SOME MODERATE ASSISTANCE AND GUIDING. VSS
[2020-05-26 03:57] LABS: Albumin, Blood 2.8 g/dL (3.4-5.0); Anion Gap 5 mmol/L (6-16); Blood Urea Nitrogen 33 mg/dL (8-24); Bun/Creatinine Ratio 13.3 (12.0-20.0); CO2, Blood 26 mmol/L (21-32); Calcium, Blood 8.2 mg/dL (8.5-10.1); Chloride, Blood 106 mmol/L (98-108); Creatinine, Blood 2.49 mg/dL (0.40-1.00); Glomerular Filtration Rate 22 (60-); Glucose, Blood 127 mg/dL (70-99); Magnesium, Blood 2.4 mg/dL (1.6-2.4); Phosphorus, Blood 5.1 mg/dL (2.5-4.9); Potassium, Blood 5.6 mmol/L (3.5-5.5); Sodium, Blood 137 mmol/L (136-145)
--- NOTE | 2020-05-26 09:09 | NUR ---
PT GAVE STUDENT NURSE PERMISSION FOR CARE ON 05/26/20 AT 0900
--- NOTE | 2020-05-26 12:00 | NUR ---
REASSESSMENT PT RESTING IN BED WITH 2L OF O2 VIA NC. DISCHARGE ORDERS RECEIVED, AWAITING [facility], [place] ARRIVAL FOR HOME O2 AND AFTER PT IS ABLE TO DISCHARGE. PT AWAKE EATING LUNCH. DECLINED PHYSICAL THERAPY EVAL. PT REPORTED THAT A RIDE HOME IS AVAILABLE.
--- NOTE | 2020-05-26 13:40 | NUR ---
DISCHARGE INSTRUCTIONS GONE OVER WITH PT. INSTRUCTED PT ON PRESCRIPTIONS AND HARD SCRIPT FOR PERCOCET GIVEN TO PT. INSTRUCTED PT ON FOLLOW LAB ORDERS AND FOLLOW UP VISIT WITH PCP. NEW OUTPATIENT VISIT FOR PULMONOLOGY GONE OVER. PT STATED UNDERSTANDING. BELONGINGS GATHERED AND GIVEN TO PT. PT PLACED ON HOME O2 FROM [facility] AND WAS ESCORTED OUT TO AWAITING RIDE VIA WHEELCHAIR BY [facility] [employer]ATHERS.
[2020-05-26 15:13] LABS: Performing Lab SYMBIODX; Test Name TISSUE BIOPSY
== END 2020-05-26 13:45 | disposition home or self-care (01) ==
LOC: ORSCSDS 10:28 → ICUW 14:31
PROVIDERS: Otolaryngology; ADMIT Internal Medicine
PROC: 07B20ZX Excision of Left Neck Lymphatic, Open Approach, Diagnostic (ICD-10-PCS; principal; 2020-05-25 11:45)
DX: D76.3 Other histiocytosis syndromes (principal); L98.0 Pyogenic granuloma; J95.88 Other intraoperative complications of respiratory system, not elsewhere classified; R09.02 Hypoxemia; I13.2 Hypertensive heart and chronic kidney disease with heart failure and with stage 5 chronic kidney disease, or end stage renal disease; N18.6 End stage renal disease; I50.9 Heart failure, unspecified; J44.9 Chronic obstructive pulmonary disease, unspecified; R32 Unspecified urinary incontinence; F32.9 Major depressive disorder, single episode, unspecified; F41.9 Anxiety disorder, unspecified; Y84.8 Other medical procedures as the cause of abnormal reaction of the patient, or of later complication, without mention of misadventure at the time of the procedure; Z85.72 Personal history of non-Hodgkin lymphomas; Z99.2 Dependence on renal dialysis; Z79.82 Long term (current) use of aspirin; Z92.21 Personal history of antineoplastic chemotherapy
CPT/HCPCS: 36415; 71046; 80048; 80069; 83735; 84443; 85025; 87015; 87102; 87116; 87206; 88184; 88185; 88305; 88312; 88341; 88342; 94640; 94761; 96374; 96376; A9270; G0378; J0171; J1100; J2250; J2370; J2405; J2704; J3010

== ENCOUNTER 2021-03-10 11:06 | Emergency (ER) | payer OTHER ==
[~2021-03-10] VITALS: Ht 157.5 cm; Wt 105.2 kg
[2021-03-10] MEDS ORDERED: Cymbalta20 MG (11:45)
[2021-03-10 11:57] LABS: BASOPHILS ABSOLUTE AUTO 0.06 K/mm3 (0.00-0.23); BASOPHILS PERCENT AUTO 1 % (0-2); EOSINOPHILS ABSOLUTE AUTO 0.01 K/mm3 (0.00-0.68); EOSINOPHILS PERCENT AUTO 0 % (0-6); Hematocrit 45.1 % (33.0-51.0); Hemoglobin 15.1 g/dL (11.5-16.0); IMMATURE GRAN ABSOLUTE AUTO 0.11 K/mm3 (0.00-0.10); IMMATURE GRAN PERCENT AUTO 1 % (0-1); LYMPHOCYTES ABSOLUTE AUTO 1.32 K/mm3 (0.84-5.20); LYMPHOCYTES PERCENT AUTO 13 % (21-46); MONOCYTES ABSOLUTE AUTO 0.39 K/mm3 (0.16-1.47); MONOCYTES PERCENT AUTO 4 % (4-13); Mean Corpuscular HGB 29.6 pg (26.0-34.0); Mean Corpuscular HGB Conc 33.5 g/dL (31.5-36.5); Mean Corpuscular Volume 88 fL (80-100); Mean Platelet Volume 9.9 fL (9.1-12.4); NEUTROPHILS ABSOLUTE AUTO 8.37 K/mm3 (1.96-9.15); NEUTROPHILS PERCENT AUTO 82 % (41-73); Platelet Count 196 K/mm3 (150-400); RDW Coefficient Variation 12.4 % (11.7-14.2); RDW Standard Deviation 40.4 fL (35.1-46.3); White Blood Cell Count 10.26 K/mm3 (4.00-11.30)
[2021-03-10 12:14] LABS: Albumin, Blood 3.8 g/dL (3.4-5.0); Bilirubin, Total 0.4 mg/dL (0.1-1.0); Bun/Creatinine Ratio 9.3 (12.0-20.0); Calcium, Blood 9.8 mg/dL (8.5-10.1); Creatinine, Blood 2.04 mg/dL (0.40-1.00); Potassium, Blood 4.6 mmol/L (3.5-5.5); Total Protein, Blood 7.8 g/dL (6.4-8.2)
[2021-03-10 13:51] LABS: Source, Urine Clean Catch
[2021-03-10 13:55] LABS: Bilirubin, Urine Neg (Neg); Blood, Urine 2+ (Neg); Glucose Qualitative, Urine Neg (Neg); Ketones, Urine Neg (Neg); Leukocyte Esterase, Urine Neg (Neg); Nitrite, Urine Neg (Neg); Protein, Urine 4+ (Neg); Urobilinogen, Urine NORM (Normal)
[2021-03-10] MEDS ORDERED: PHENERGAN25 MG PR (13:58)
[2021-03-10] MEDS ORDERED: ONDA4ODT MM (13:58)
[2021-03-10] MEDS ORDERED: PERCOCET 10-321 EAC9 PO (14:04)
[2021-03-10] MEDS ORDERED: Zithromax250 MG PO (14:06)
[2021-03-10 14:14] LABS: Appearance, Urine Clear (Clear); Color, Urine Yellow (P-Yellow)
[2021-03-10 14:16] LABS: Bacteria Rare /hpf; Hyaline Casts 0-2 /lpf (0-2); Red Blood Cells, Urine 0-2 /hpf (0-2); Squamous Epithelial Cells Rare /hpf (Few); White Blood Cells, Urine 0-2 /hpf (0-5)
== END 2021-03-10 14:24 | disposition home or self-care (01) ==
LOC: ER 11:06
PROVIDERS: Physician Assistant
DX: K80.70 Calculus of gallbladder and bile duct without cholecystitis without obstruction (principal); J18.9 Pneumonia, unspecified organism; I13.0 Hypertensive heart and chronic kidney disease with heart failure and stage 1 through stage 4 chronic kidney disease, or unspecified chronic kidney disease; N18.9 Chronic kidney disease, unspecified; I50.9 Heart failure, unspecified; Z86.16 Personal history of COVID-19; G47.33 Obstructive sleep apnea (adult) (pediatric); Z99.2 Dependence on renal dialysis; Z87.891 Personal history of nicotine dependence; Z91.048 Other nonmedicinal substance allergy status; Z88.8 Allergy status to other drugs, medicaments and biological substances; Z79.82 Long term (current) use of aspirin; Z79.899 Other long term (current) drug therapy
CPT/HCPCS: 36415; 71045; 76705; 80053; 81001; 83690; 83880; 84484; 85025; 87086; 93005; 93010; 96374; 96375; 99284-25; J2405; J3010; J7030

== ENCOUNTER 2021-09-11 16:33 | Emergency (ER) | payer OTHER ==
[~2021-09-11] VITALS: Ht 167.6 cm; Wt 108.4 kg
[~2021-09-11 16:33] MED LIST changes: +Cymbalta20 MG; +PERCOCET 10-321 EAC9 PO; +PHENERGAN25 MG PR; +Zithromax250 MG PO
[2021-09-11 17:30] LABS: Influenza A Negative (NEGATIVE); Influenza B Negative (NEGATIVE)
[2021-09-11 17:56] LABS: SARS-Cov-2 (COVID-19) PCR, MMC NEGATIVE (NEGATIVE)
[2021-09-12] MEDS ORDERED: LEVO750 PO (00:17)
== END 2021-09-12 00:39 | disposition home or self-care (01) ==
LOC: ER 16:33
PROVIDERS: Physician Assistant
DX: R05.9 Cough, unspecified (principal); I13.2 Hypertensive heart and chronic kidney disease with heart failure and with stage 5 chronic kidney disease, or end stage renal disease; N18.6 End stage renal disease; I50.9 Heart failure, unspecified; G47.33 Obstructive sleep apnea (adult) (pediatric); Z87.01 Personal history of pneumonia (recurrent); Z20.822 Contact with and (suspected) exposure to COVID-19; Z79.899 Other long term (current) drug therapy; Z79.82 Long term (current) use of aspirin; Z88.8 Allergy status to other drugs, medicaments and biological substances; Z91.041 Radiographic dye allergy status
CPT/HCPCS: 71046; 87804; 99283-25; A9270; U0004

== ENCOUNTER 2021-10-16 14:38 | Emergency (ER) | payer OTHER ==
[~2021-10-16] VITALS: Ht 157.5 cm; Wt 108.9 kg
[2021-10-16 15:38] LABS: BASOPHILS ABSOLUTE AUTO 0.07 K/mm3 (0.00-0.23); BASOPHILS PERCENT AUTO 1 % (0-2); EOSINOPHILS ABSOLUTE AUTO 0.21 K/mm3 (0.00-0.68); EOSINOPHILS PERCENT AUTO 3 % (0-6); Hematocrit 42.6 % (33.0-51.0); Hemoglobin 13.6 g/dL (11.5-16.0); IMMATURE GRAN ABSOLUTE AUTO 0.03 K/mm3 (0.00-0.10); IMMATURE GRAN PERCENT AUTO 1 % (0-1); LYMPHOCYTES ABSOLUTE AUTO 1.57 K/mm3 (0.84-5.20); LYMPHOCYTES PERCENT AUTO 24 % (21-46); MONOCYTES ABSOLUTE AUTO 0.41 K/mm3 (0.16-1.47); MONOCYTES PERCENT AUTO 6 % (4-13); Mean Corpuscular HGB 28.8 pg (26.0-34.0); Mean Corpuscular HGB Conc 31.9 g/dL (31.5-36.5); Mean Corpuscular Volume 90 fL (80-100); Mean Platelet Volume 9.4 fL (9.1-12.4); NEUTROPHILS ABSOLUTE AUTO 4.19 K/mm3 (1.96-9.15); NEUTROPHILS PERCENT AUTO 65 % (41-73); Platelet Count 189 K/mm3 (150-400); RDW Coefficient Variation 13.3 % (11.7-14.2); RDW Standard Deviation 44.1 fL (35.1-46.3); Red Blood Cell Count 4.72 M/mm3 (3.80-5.20); White Blood Cell Count 6.48 K/mm3 (4.00-11.30)
[2021-10-16 15:49] LABS: Source, Urine Clean Catch
[2021-10-16 15:54] LABS: Appearance, Urine Clear (Clear); Bilirubin, Urine Neg (Neg); Blood, Urine Neg (Neg); Color, Urine Yellow (P-Yellow); Glucose Qualitative, Urine Neg (Neg); Ketones, Urine Neg (Neg); Leukocyte Esterase, Urine Neg (Neg); Nitrite, Urine Neg (Neg); Protein, Urine 2+ (Neg); Specific Gravity, Urine 1.015 (1.003-1.022); Urobilinogen, Urine NORM (Normal)
[2021-10-16 15:59] LABS: Albumin, Blood 3.3 g/dL (3.4-5.0); Albumin/Globulin Ratio 0.9 (0.8-1.8); Bilirubin, Total 0.4 mg/dL (0.1-1.0); Bun/Creatinine Ratio 10.8 (12.0-20.0); Calcium, Blood 9.4 mg/dL (8.5-10.1); Creatinine, Blood 2.96 mg/dL (0.40-1.00); Globulin, Blood 3.5 g/dL (2.2-4.0); Potassium, Blood 4.5 mmol/L (3.5-5.5); Total Protein, Blood 6.8 g/dL (6.4-8.2)
[2021-10-16 16:00] LABS: Bacteria Few /hpf; Red Blood Cells, Urine 0-2 /hpf (0-2); Squamous Epithelial Cells Rare /hpf (Few); White Blood Cells, Urine 0-2 /hpf (0-5)
== END 2021-10-16 17:15 | disposition home or self-care (01) ==
LOC: ER 14:38
PROVIDERS: Physician Assistant
DX: R10.30 Lower abdominal pain, unspecified (principal); I13.2 Hypertensive heart and chronic kidney disease with heart failure and with stage 5 chronic kidney disease, or end stage renal disease; N18.6 End stage renal disease; I50.9 Heart failure, unspecified; G47.33 Obstructive sleep apnea (adult) (pediatric); Z99.2 Dependence on renal dialysis; Z87.891 Personal history of nicotine dependence; Z79.899 Other long term (current) drug therapy; Z79.82 Long term (current) use of aspirin; Z88.8 Allergy status to other drugs, medicaments and biological substances; Z91.041 Radiographic dye allergy status
CPT/HCPCS: 36415; 74176; 80053; 81001; 83690; 85025

== ENCOUNTER → 2021-12-19 | Outpatient (CLI) | payer OTHER | END | disposition home or self-care (01) | LOC: LAB SHORT 08:12 | DX: H10.89 Other conjunctivitis (principal) | CPT/HCPCS: 87070; 87205 ==

== ENCOUNTER → 2022-09-18 | Outpatient (CLI) | payer OTHER ==
[~2022-09-18] MED LIST changes: +CEFD300 PO; -Cymbalta20 MG; +Cymbalta20 MG PO; +GUAI600T33 PO
[2022-09-18 11:24] LABS: Source, Urine Clean Catch
[2022-09-18 16:06] LABS: Creatinine, Urine Random 44.3 mg/dL (27.00-270.00); Protein, Urine Random 44.8 mg/dL (0.0-11.9)
[2022-09-18 16:35] LABS: Appearance, Urine Clear (Clear); Bilirubin, Urine Neg (Neg); Blood, Urine 1+ (Neg); Glucose Qualitative, Urine Neg (Neg); Ketones, Urine Neg (Neg); Leukocyte Esterase, Urine Neg (Neg); Nitrite, Urine Neg (Neg); Protein, Urine 2+ (Neg); Specific Gravity, Urine 1.015 (1.003-1.022); Urobilinogen, Urine NORM (Normal)
[2022-09-18 16:56] LABS: Color, Urine Pale Yellow (P-Yellow)
[2022-09-18 16:57] LABS: Bacteria Few /hpf; Granular Casts 0-2 /lpf (0); Hyaline Casts 0-2 /lpf (0-2); Red Blood Cells, Urine 0-2 /hpf (0-2); Squamous Epithelial Cells Few /hpf (Few); White Blood Cells, Urine 0-2 /hpf (0-5)
[2022-09-21 11:12] LABS: PROTEIN,TOTAL,URINE 15.5 mg/dL (Not Estab.)
== END | disposition home or self-care (01) ==
LOC: LAB SHORT 09:30 → LAB 09:30
PROVIDERS: Hospitalist
DX: N18.4 Chronic kidney disease, stage 4 (severe) (principal)
CPT/HCPCS: 81001; 82570; 84156; 84166

== ENCOUNTER 2022-10-25 14:07 | Day surgery (SDC) | payer OTHER ==
[2022-10-25 14:15] VITALS: BP 119/72
[2022-10-25] MEDS ORDERED: ERYT.5TO BOTHEYES (16:26)
[2022-10-25] MEDS ORDERED: FISH OIL 1,2001 EAC7 PO (16:26)
[2022-10-25] MEDS ORDERED: DOCU100 PO (16:26)
[2022-10-25] MEDS ORDERED: FLUT1DIS5 INH (16:27)
[2022-10-25] MEDS ORDERED: MIRT30 PO (16:27)
[2022-10-25] MEDS ORDERED: MULVITA PO (16:27)
[2022-10-25] MEDS ORDERED: SILD25T PO (16:28)
[2022-10-25] MEDS ORDERED: POTA10T PO (16:28)
[2022-10-25] MEDS ORDERED: MIRALAX17 GM PO (16:28)
== END 2022-10-25 19:51 | disposition home or self-care (01) ==
LOC: ATC 14:07
DX: E83.52 Hypercalcemia (principal); I12.0 Hypertensive chronic kidney disease with stage 5 chronic kidney disease or end stage renal disease; N18.5 Chronic kidney disease, stage 5; I50.9 Heart failure, unspecified; I27.20 Pulmonary hypertension, unspecified; J44.9 Chronic obstructive pulmonary disease, unspecified; G47.33 Obstructive sleep apnea (adult) (pediatric); Z88.8 Allergy status to other drugs, medicaments and biological substances; Z91.041 Radiographic dye allergy status; Z87.891 Personal history of nicotine dependence; Z79.899 Other long term (current) drug therapy
CPT/HCPCS: 96365; 96366; J2430; J7040

== ENCOUNTER → 2022-12-03 | Outpatient (CLI) | payer OTHER ==
[~2022-12-03] MED LIST changes: +DOCU100 PO; +ERYT.5TO BOTHEYES; +FISH OIL 1,2001 EAC7 PO; +FLUT1DIS5 INH; +MIRALAX17 GM PO; +MULVITA PO; +POTA10T PO; +SILD25T PO
[2022-12-03 16:15] LABS: BASOPHILS ABSOLUTE AUTO 0.06 K/mm3 (0.00-0.23); BASOPHILS PERCENT AUTO 1 % (0-2); EOSINOPHILS ABSOLUTE AUTO 0.27 K/mm3 (0.00-0.68); EOSINOPHILS PERCENT AUTO 5 % (0-6); Hematocrit 41.2 % (33.0-51.0); Hemoglobin 12.8 g/dL (11.5-16.0); IMMATURE GRAN ABSOLUTE AUTO 0.02 K/mm3 (0.00-0.10); IMMATURE GRAN PERCENT AUTO 0 % (0-1); LYMPHOCYTES ABSOLUTE AUTO 1.36 K/mm3 (0.84-5.20); LYMPHOCYTES PERCENT AUTO 27 % (21-46); MONOCYTES ABSOLUTE AUTO 0.47 K/mm3 (0.16-1.47); MONOCYTES PERCENT AUTO 9 % (4-13); Mean Corpuscular HGB Conc 31.1 g/dL (31.5-36.5); Mean Corpuscular Volume 93 fL (80-100); NEUTROPHILS ABSOLUTE AUTO 2.94 K/mm3 (1.96-9.15); NEUTROPHILS PERCENT AUTO 57 % (41-73); Platelet Count 174 K/mm3 (150-400); RDW Coefficient Variation 13.2 % (11.7-14.2); RDW Standard Deviation 45.6 fL (35.1-46.3); Red Blood Cell Count 4.42 M/mm3 (3.80-5.20); White Blood Cell Count 5.12 K/mm3 (4.00-11.30)
[2022-12-03 18:20] LABS: Albumin, Blood 3.6 g/dL (3.4-5.0); Anion Gap 2 mmol/L (6-16); Blood Urea Nitrogen 30 mg/dL (8-24); Bun/Creatinine Ratio 8.7 (12.0-20.0); CO2, Blood 27 mmol/L (21-32); Calcium, Blood 9.2 mg/dL (8.5-10.1); Chloride, Blood 110 mmol/L (98-108); Creatinine, Blood 3.43 mg/dL (0.40-1.00); Glomerular Filtration Rate 16 (60-); Glucose, Blood 97 mg/dL (70-99); Potassium, Blood 4.3 mmol/L (3.5-5.5); Sodium, Blood 139 mmol/L (136-145)
== END ==
LOC: LAB SHORT 15:29 → LAB 15:29
PROVIDERS: Hospitalist
DX: N18.4 Chronic kidney disease, stage 4 (severe) (principal)
CPT/HCPCS: 36415; 80069; 83970; 85025

== ENCOUNTER → 2023-02-28 | Outpatient (CLI) | payer OTHER ==
[2023-02-28 14:58] LABS: Source, Urine Clean Catch
[2023-02-28 17:52] LABS: Appearance, Urine Clear (Clear); Bilirubin, Urine Neg (Neg); Blood, Urine Neg (Neg); Color, Urine Yellow (P-Yellow); Glucose Qualitative, Urine Neg (Neg); Ketones, Urine Neg (Neg); Leukocyte Esterase, Urine Neg (Neg); Nitrite, Urine Neg (Neg); Protein, Urine Neg (Neg); Specific Gravity, Urine 1.015 (1.003-1.022); Urobilinogen, Urine NORM (Normal)
== END ==
LOC: LAB SHORT 09:05 → LAB 09:05
PROVIDERS: Hospitalist
DX: N18.4 Chronic kidney disease, stage 4 (severe) (principal)
CPT/HCPCS: 81003

== ENCOUNTER → 2023-05-10 | Outpatient (CLI) | payer OTHER ==
[2023-05-10 17:06] LABS: Source, Urine Voided
[2023-05-10 19:01] LABS: Appearance, Urine Clear (Clear); Bilirubin, Urine Neg (Neg); Blood, Urine 2+ (Neg); Color, Urine Yellow (P-Yellow); Glucose Qualitative, Urine 1+ (Neg); Ketones, Urine Neg (Neg); Leukocyte Esterase, Urine Neg (Neg); Nitrite, Urine Neg (Neg); Protein, Urine 2+ (Neg); Urobilinogen, Urine NORM (Normal)
[2023-05-10 19:17] LABS: Bacteria Many /hpf; Squamous Epithelial Cells Mod /hpf (Few); White Blood Cells, Urine 0-2 /hpf (0-5)
[2023-05-10 19:25] LABS: Protein, Urine Random 105.7 mg/dL (0.0-11.9)
== END | disposition home or self-care (01) ==
LOC: LAB 17:03 → LAB SHORT 17:03
PROVIDERS: Hospitalist
DX: N18.5 Chronic kidney disease, stage 5 (principal)
CPT/HCPCS: 81001; 82570; 84156; 87077; 87086; 87186

== ENCOUNTER → 2023-10-02 | Outpatient (CLI) | payer OTHER ==
[2023-10-02 17:01] LABS: BASOPHILS ABSOLUTE AUTO 0.05 K/mm3 (0.00-0.23); BASOPHILS PERCENT AUTO 1 % (0-2); EOSINOPHILS PERCENT AUTO 0 % (0-6); Hemoglobin 12.3 g/dL (11.5-16.0); IMMATURE GRAN ABSOLUTE AUTO 0.07 K/mm3 (0.00-0.10); IMMATURE GRAN PERCENT AUTO 1 % (0-1); LYMPHOCYTES ABSOLUTE AUTO 1.46 K/mm3 (0.84-5.20); LYMPHOCYTES PERCENT AUTO 28 % (21-46); MONOCYTES ABSOLUTE AUTO 0.43 K/mm3 (0.16-1.47); MONOCYTES PERCENT AUTO 8 % (4-13); Mean Corpuscular HGB 27.8 pg (26.0-34.0); Mean Corpuscular HGB Conc 30.8 g/dL (31.5-36.5); Mean Corpuscular Volume 91 fL (80-100); NEUTROPHILS ABSOLUTE AUTO 3.22 K/mm3 (1.96-9.15); NEUTROPHILS PERCENT AUTO 62 % (41-73); Platelet Count 155 K/mm3 (150-400); RDW Coefficient Variation 13.2 % (11.7-14.2); RDW Standard Deviation 43.5 fL (35.1-46.3); Red Blood Cell Count 4.42 M/mm3 (3.80-5.20); White Blood Cell Count 5.23 K/mm3 (4.00-11.30)
[2023-10-02 17:07] LABS: Bun/Creatinine Ratio 9.5 (12.0-20.0); Calcium, Blood 9.5 mg/dL (8.5-10.1); Creatinine, Blood 4.32 mg/dL (0.40-1.00); Potassium, Blood 5.1 mmol/L (3.5-5.5)
== END ==
LOC: LAB 16:57 → LAB SHORT 16:57
PROVIDERS: Physician Assistant Surgical
DX: R42 Dizziness and giddiness (principal)
CPT/HCPCS: 80048; 85025

== ENCOUNTER 2024-01-21 14:01 | Emergency (ER) | payer OTHER ==
[~2024-01-21] VITALS: Ht 157.5 cm; Wt 104.3 kg
[2024-01-21 15:05] LABS: BASOPHILS ABSOLUTE AUTO 0.05 K/mm3 (0.00-0.23); BASOPHILS PERCENT AUTO 1 % (0-2); EOSINOPHILS PERCENT AUTO 0 % (0-6); Hematocrit 42.4 % (33.0-51.0); Hemoglobin 13.5 g/dL (11.5-16.0); IMMATURE GRAN ABSOLUTE AUTO 0.09 K/mm3 (0.00-0.10); IMMATURE GRAN PERCENT AUTO 2 % (0-1); LYMPHOCYTES ABSOLUTE AUTO 1.26 K/mm3 (0.84-5.20); LYMPHOCYTES PERCENT AUTO 22 % (21-46); MONOCYTES ABSOLUTE AUTO 0.38 K/mm3 (0.16-1.47); MONOCYTES PERCENT AUTO 7 % (4-13); Mean Corpuscular HGB Conc 31.8 g/dL (31.5-36.5); Mean Corpuscular Volume 91 fL (80-100); Mean Platelet Volume 9.9 fL (9.1-12.4); NEUTROPHILS ABSOLUTE AUTO 3.95 K/mm3 (1.96-9.15); NEUTROPHILS PERCENT AUTO 69 % (41-73); Platelet Count 169 K/mm3 (150-400); RDW Coefficient Variation 13.2 % (11.7-14.2); Red Blood Cell Count 4.65 M/mm3 (3.80-5.20); White Blood Cell Count 5.73 K/mm3 (4.00-11.30)
[2024-01-21 15:22] LABS: Albumin, Blood 3.5 g/dL (3.4-5.0); Bilirubin, Total 0.3 mg/dL (0.1-1.0); Bun/Creatinine Ratio 13.8 (12.0-20.0); Calcium, Blood 9.2 mg/dL (8.5-10.1); Creatinine, Blood 3.69 mg/dL (0.40-1.00); Globulin, Blood 3.4 g/dL (2.2-4.0); Potassium, Blood 4.7 mmol/L (3.5-5.5); Total Protein, Blood 6.9 g/dL (6.4-8.2)
[2024-01-21] MEDS ORDERED: Morphine Sulfate 10 MG/ML 1MLSYR IV ONE ×2 (17:50→21:00)
[2024-01-21 19:00] VITALS: BP 161/99
[2024-01-21] MEDS ORDERED: RX Prepack 6 Tabs Oxycodone 5mg UD ONE (22:40)
[2024-01-21] MEDS ORDERED: Amoxicillin/Clavulanate K 875 MG Tab PO ONE (22:40)
[2024-01-21] MEDS ORDERED: Doxycycline Hyclate 100 MG TAB PO ONE (22:40)
[2024-01-21] MEDS ORDERED: DOXY100 PO (22:41)
[2024-01-21] MEDS ORDERED: AMOCLA875 PO (22:41)
[2024-01-21] MEDS ORDERED: Percocet 5-3251 EACH PO (22:43)
== END 2024-01-21 23:14 | disposition home or self-care (01) ==
LOC: ER 14:01
PROVIDERS: Student in an Organized Health Care Education/Training Program
DX: K80.20 Calculus of gallbladder without cholecystitis without obstruction (principal); J18.9 Pneumonia, unspecified organism; I13.2 Hypertensive heart and chronic kidney disease with heart failure and with stage 5 chronic kidney disease, or end stage renal disease; I50.9 Heart failure, unspecified; N18.6 End stage renal disease; G47.33 Obstructive sleep apnea (adult) (pediatric); C85.90 Non-Hodgkin lymphoma, unspecified, unspecified site; M06.9 Rheumatoid arthritis, unspecified; Z87.891 Personal history of nicotine dependence; Z88.8 Allergy status to other drugs, medicaments and biological substances; Z91.041 Radiographic dye allergy status; Z79.899 Other long term (current) drug therapy
CPT/HCPCS: 71046; 74176; 76705; 80053; 83690; 84484; 85025; 93005; 93010; 96374-59; 96376-59; 99285-25; A9270; J2270